=== PATIENT | female | born 1985 | race Two or more races ===

== ENCOUNTER 2018-08-12 20:33 | Emergency (ER) | payer SELFPAY ==
[~2018-08-12] VITALS: Ht 152.4 cm; Wt 98.3 kg
[2018-08-12 21:03] VITALS: BP 152/94
--- NOTE | 2018-08-12 21:04 | NUR ---
PT REPORTS INTERMITTENT ABD CRAMPING SINCE YESTERDAY, MENSES STARTED TODAY. PT DENIES ANY URINARY COMPLAINTS. PT SAYS IBUPROFEN HELPS HER PAIN. PT DENIES ANY OTHER COMPLAINTS. PT DOES NOT TAKE CONTROL.
[2018-08-12] MEDS ORDERED: ACETAMINOPHEN 325 MG TABLET ONE (21:16)
[2018-08-12] MEDS ORDERED: ACETAMINOPHEN 325 MG TABLET PO ONE (21:30)
[2018-08-12 21:33] LABS: BASOPHILS # (AUTO) 0.02 x10^3/uL (0-0.1); BASOPHILS % (AUTO) 0 % (0-1); EOSINOPHILS # (AUTO) 0.18 x10^3/uL (0-0.4); EOSINOPHILS % (AUTO) 1 % (1-7); LYMPHOCYTES # (AUTO) 3.47 x10^3/uL (1-3.4); LYMPHOCYTES % (AUTO) 21 % (22-44); MD NO; MEAN CORPUSCULAR HEMOGLOBIN 27.1 pg (27.0-34.8); MEAN CORPUSCULAR HGB CONC 33.8 g/dL (32.4-35.8); MEAN CORPUSCULAR VOLUME 80.1 fL (80-100); MEAN PLATELET VOLUME 7.9 fL (7.4-10.4); MONOCYTES % (AUTO) 2 % (2-9); NEUTROPHILS # (AUTO) 12.77 x10^3/uL (1.8-6.8); NEUTROPHILS % (AUTO) 76 % (42-75); PLATELET COUNT 439 x10^3/uL (130-400); RED BLOOD COUNT 4.45 x10^6/uL (3.82-5.3); RED CELL DISTRIBUTION WIDTH 15.5 % (9.6-15.2)
[2018-08-12 21:40] LABS: ALANINE AMINOTRANSFERASE 24 U/L (12-78); ANION GAP 7 mmol/L (5-15); CALCIUM 8.5 mg/dL (8.5-10.1); CHLORIDE 108 mmol/L (98-107); CREATININE 0.74 mg/dL (0.55-1.02)
[2018-08-12 21:44] LABS: ALKALINE PHOSPHATASE 136 U/L (45-117); BILIRUBIN,TOTAL 0.2 mg/dL (0.2-1.0); TOTAL PROTEIN 8.5 g/dL (6.4-8.2)
--- NOTE | 2018-08-12 22:17 | NUR ---
PT REFUSING JAILENE HANEY MADE AWARE. SENT TO BATHROOM WITH CLEAN INSTRUCTIONS ON HOW TO DO BEST POSSIBLE CLEAN CATCH.
--- NOTE | 2018-08-12 22:30 | NUR ---
PT SAYS AFTER VOIDING HER ABD PAIN DECREASED FROM 10/10 TO 3/10.
--- NOTE | 2018-08-12 22:33 | NUR ---
PT ABLE TO URINATE VERY SMALL AMOUNT, SAMPLE WALKED TO LAB, LAB SAYS THEY SHOULD BE ABLE TO RUN THE UA.
[2018-08-12 22:45] LABS: CULTURE INDICATED? YES; MICROSCOPIC INDICATED
--- NOTE | 2018-08-13 00:02 | NUR ---
RN TO BEDSIDE, PT SLEEPING. D/C INSTRUCTIONS GIVEN TO PT AND , ADDRESSED ALL QUESTIONS/CONCERNS, VERBALIZED UNDERSTANDING. PT DRESSED HERSELF AND AMBULATED OUT OF ED IN STABLE CONDITION WITH ALL BELONGINGS.
== END 2018-08-13 00:06 | disposition home or self-care (01) ==
LOC: ED 21:42
DX: R10.30 Lower abdominal pain, unspecified (principal); D72.829 Elevated white blood cell count, unspecified
CPT/HCPCS: 36415; 80053; 81001; 84703; 85025; 87086; 99283